=== PATIENT | male | born 1945 | race Caucasian/White ===

== ENCOUNTER 2019-02-17 15:03 | Emergency (ER) | payer OTHER ==
[~2019-02-17] VITALS: Ht 157.5 cm; Wt 71.2 kg
[2019-02-17 15:05] VITALS: BP 182/121
--- NOTE | 2019-02-17 15:27 | NUR ---
PATIENT PRESENTS TO ED WITH C/O FRAZIER X 1 DAY, VOMITTING X 1 DAY, AND COUGHING X 1 MONTH. DENIES N/D; SKIN IS PINK/WARM/DRY; AAOX4 WITH EVEN AND STEADY GAIT; PT DENIES ANY FEVER, CP, OR SOB AT THIS TIME; PATIENT STATES HEADACHE WITH PAIN OF 5/10 AT THIS TIME; PATIENT POSITIONED FOR COMFORT; HOB ELEVATED; BEDRAILS UP X2; BED DOWN. BP 194/105, ER AWARE. PATEINT STATES THAT HE HAS CHECKS BP DAILY AND TAKES BP MEDICATION. HX: HYPERTENSION, ARTHRITIS RX: CLONIDINE NKA Addendum: 02/17/19 at 1710 by MEDUD Patient discharged with BP 183/117, DR WEBSTER made aware. Per ok to discharge. Written and verbal after care instructions given and explained. Patient alert, oriented and verbalized understanding of instructions. Ambulatory with steady gait. All questions addressed prior to discharge. ID band removed. Patient advised to follow up with PMD. Rx of motrin and norco given. Patient educated on indication of medication including possible reaction and side effects. Opportunity to ask questions provided and answered.
[2019-02-17] MEDS ORDERED: cloNIDine 0.1 MG TAB PO ONE (15:40)
--- NOTE | 2019-02-17 15:56 | NUR ---
PT TAKEN FOR CT VIA WHEELCHAIR.
--- NOTE | 2019-02-17 16:11 | NUR ---
Patient returned from CT scan. RN re-evaluating patient at bedside.
--- NOTE | 2019-02-17 16:36 | NUR ---
NEW BP OF 179/106. ER MD AWARE AND AT BEDSIDE.
[2019-02-17] MEDS ORDERED: KETOROLAC 60 MG/2 ML VIAL IM ONE (16:40)
[2019-02-17 17:16] VITALS: BP 183/117
--- NOTE | 2019-02-17 17:16 | NUR ---
Patient discharged with BP 183/117. ER MD WEBSTER AWARE. Per ok to discharge. Written and verbal after care instructions given and explained. Patient alert, oriented and verbalized understanding of instructions. Ambulatory with steady gait. All questions addressed prior to discharge. ID band removed. Patient advised to follow up with PMD. Rx of motrin and norco given. Patient educated on indication of medication including possible reaction and side effects. Opportunity to ask questions provided and answered.
== END 2019-02-17 17:16 | disposition home or self-care (01) ==
LOC: MED 15:03
DX: I10 Essential (primary) hypertension (principal); R11.2 Nausea with vomiting, unspecified; M54.2 Cervicalgia
CPT/HCPCS: 70450; 81002; 96372; 99284; J1885

== ENCOUNTER 2019-03-19 11:55 | Emergency (ER) | payer OTHER ==
[~2019-03-19] VITALS: Ht 157.5 cm; Wt 74.4 kg
[2019-03-19 12:02] VITALS: BP 155/93
--- NOTE | 2019-03-19 12:04 | NUR ---
PT TAKEN TO BED 1.
--- NOTE | 2019-03-19 12:27 | NUR ---
PATIENT PRESENTS TO ED WITH C/O COUGH X 1 MONTH. PT STATES HE WENT TO URGENT CARE YESTERDAY AND THEY DIAGNOSED HIM WITH PNA. DENIES N/V/D; SKIN IS PINK/WARM/DRY; AAOX4 WITH EVEN AND STEADY GAIT; LUNG WITH COURSE SOUNDS TO LLL; HR EVEN AND REGULAR; PT DENIES ANY FEVER, CP, SOB, AT THIS TIME; PATIENT STATES PAIN OF 5/10 AT THIS TIME; VSS; PATIENT POSITIONED FOR COMFORT; HOB ELEVATED; BEDRAILS UP X2; BED DOWN. ER MD SAW PT.
[2019-03-19 13:18] LABS: BASOPHILS % (AUTO) 0.6 % (0.0-2.0); EOSINOPHILS # (AUTO) 0.1 K/uL (0-0.4); HEMATOCRIT 44.4 % (36-52); HEMOGLOBIN 14.6 g/dL (12.0-18.0); LYMPHOCYTES % (AUTO) 29.6 % (20.5-51.1); MEAN CORPUSCULAR HEMOGLOBIN 31 pg (27-31); MEAN CORPUSCULAR HGB CONC 33 g/dL (33-37); MONOCYTES # (AUTO) 0.3 K/uL (0.8-1.0); MONOCYTES % (AUTO) 8.3 % (1.7-9.3); NEUTROPHILS # (AUTO) 2.1 K/uL (1.8-7.7); NEUTROPHILS % (AUTO) 59.5 % (42.2-75.2); PLATELET COUNT (AUTO) 163 K/uL (140-450); RED BLOOD CELL COUNT(AUTO) 4.73 MIL/uL (4.20-6.10); RED CELL DISTRIBUTION WIDTH 14.7 % (11.6-13.7); WHITE BLOOD COUNT (AUTO) 3.5 K/uL (4.8-10.8)
[2019-03-19 13:46] LABS: ANION GAP 15.2 (8-16); CARBON DIOXIDE 25.5 mmol/L (21-32); CHLORIDE 106 mmol/L (98-107); CREATININE 1.1 mg/dL (0.7-1.3); GLUCOSE 103 mg/dL (74-106); POTASSIUM 3.7 mmol/L (3.5-5.1); SODIUM SERUM 143 mmol/L (136-145); UREA NITROGEN, BLOOD 12 mg/dL (7-18)
[2019-03-19 13:52] LABS: ALBUMIN 3.2 g/dL (3.4-5.0); ASPARTATE AMINOTRANSFERASE 22 U/L (15-37); TOTAL BILIRUBIN 0.7 mg/dL (0.0-1.0)
[2019-03-19] MEDS ORDERED: KETOROLAC 30 MG/ML VIAL IM ONE (14:20)
[2019-03-19 14:40] VITALS: BP 146/91
--- NOTE | 2019-03-19 14:42 | NUR ---
Patient discharged with v/s stable. Written and verbal after care instructions given and explained. Patient alert, oriented and verbalized understanding of instructions. Ambulatory with steady gait. All questions addressed prior to discharge. ID band removed. Patient advised to follow up with PMD. Rx of LASIX given. Patient educated on indication of medication including possible reaction and side effects. Opportunity to ask questions provided and answered.
== END 2019-03-19 14:42 | disposition home or self-care (01) ==
LOC: MED 11:55
DX: R06.02 Shortness of breath (principal); R05 Cough; R60.0 Localized edema; I10 Essential (primary) hypertension
CPT/HCPCS: 36415; 71045; 80053; 83880; 84484; 85025; 93005; 96372; 99284; J1885; Q0092

== ENCOUNTER 2021-01-30 11:45 | Emergency (ER) | payer MEDICARE, OTHER ==
[~2021-01-30] VITALS: Ht 142.2 cm; Wt 71.7 kg
[2021-01-30 11:56] VITALS: BP 157/98
--- NOTE | 2021-01-30 14:21 | NUR ---
NO NURSING INTERVENTIONS DONE, NO COMPLETE ASSESSMENT NEEDED.
--- NOTE | 2021-01-30 14:43 | NUR ---
Patient discharged with v/s stable. Written and verbal after care instructions given and explained. Patient verbalized understanding. Ambulatory with steady gait. All questions addressed prior to discharge. Advised to follow up with PMD.
[2021-01-30 14:44] VITALS: BP 144/91
== END 2021-01-30 14:43 | disposition home or self-care (01) ==
LOC: MED 11:45
DX: S20.211A Contusion of right front wall of thorax, initial encounter (principal); I10 Essential (primary) hypertension; W22.8XXA Striking against or struck by other objects, initial encounter; Y92.89 Other specified places as the place of occurrence of the external cause; Y93.55 Activity, bike riding; Y99.8 Other external cause status
CPT/HCPCS: 71101; 99283

== ENCOUNTER 2021-02-21 14:46 | Emergency (ER) | payer MEDICARE ==
[~2021-02-21] VITALS: Ht 147.3 cm; Wt 71.7 kg
[2021-02-21 14:48] VITALS: BP 115/71
--- NOTE | 2021-02-21 15:03 | NUR ---
75/M BIB SELF WITH C/O LEFT LEG/FOOT PAIN. PATIENT STATES HE HAS HX OF GOUT AND STATES "I AM HAVING A GOUT ATTACK." PATIENT STATES PAIN BEGAN 3 DAYS AGO AND HAS WORSENED TODAY, REPORTS TAKING INDOMETHACIN WITH NO RELIEF. PATIENT ABLE TO AMBULATE WITHOUT ASSISTANCE BUT REPORTS PAIN. DENIES CP, SOB, FEVER, CHILLS, N/V/D.
[2021-02-21] MEDS ORDERED: WATER STERILE 0 ML MC ONE (15:09)
[2021-02-21] MEDS ORDERED: methylPREDNISolone SS 125 MG/2 ML VIAL ONE (15:09)
[2021-02-21] MEDS: methylPREDNISolone SS 125 MG in WATER STERILE 2 ML IM ONE (15:16)
[2021-02-21] MEDS: KETOROLAC 60 MG/2 ML VIAL IM ONE (15:17)
[2021-02-21] MEDS ORDERED: ACET-8386 PO (15:25)
--- NOTE | 2021-02-21 15:57 | NUR ---
Patient discharged with v/s stable. Written and verbal after care instructions given and explained. Patient alert, oriented and verbalized understanding of instructions. Ambulatory with steady gait. All questions addressed prior to discharge. ID band removed. Patient advised to follow up with PMD. Rx of Hydrocodone/Acetaminophen given. Patient educated on indication of medication including possible reaction and side effects. Opportunity to ask questions provided and answered.
== END 2021-02-21 15:57 | disposition home or self-care (01) ==
LOC: MED 14:46
DX: M10.072 Idiopathic gout, left ankle and foot (principal); I10 Essential (primary) hypertension
CPT/HCPCS: 96372; 99284; J1885; J2930

== ENCOUNTER 2021-12-24 14:57 | Emergency (ER) | payer MEDICARE, OTHER ==
[~2021-12-24] VITALS: Ht 157.5 cm; Wt 73.5 kg
[~2021-12-24 14:57] MED LIST: ACET-8386 PO
[2021-12-24 15:11] VITALS: BP 167/101
--- NOTE | 2021-12-24 15:59 | NUR ---
PT TAKEN TO BED 3 VIA WHEELCHAIR.
--- NOTE | 2021-12-24 17:07 | NUR ---
Dr. Milner evaluating patient at bedside.
[2021-12-24] MEDS ORDERED: KETOROLAC 60 MG/2 ML VIAL IM ONE (17:35)
[2021-12-24 18:26] VITALS: BP 170/103
--- NOTE | 2021-12-24 18:46 | NUR ---
Patient discharged with v/s stable. Written and verbal after care instructions given. Patient verbalized understanding. Ambulatory with steady gait. All questions addressed prior to discharge. Advised to follow up with PMD.
== END 2021-12-24 18:46 | disposition home or self-care (01) ==
LOC: MED 14:57
DX: R51.9 Headache, unspecified (principal); M54.2 Cervicalgia; I10 Essential (primary) hypertension
CPT/HCPCS: 70450; 96372; 99284; J1885

== ENCOUNTER 2022-10-08 09:56 | Emergency (ER) | payer OTHER ==
[~2022-10-08] VITALS: Ht 157.5 cm; Wt 70.3 kg
[~2022-10-08 09:56] MED LIST changes: -ACET-8386 PO; +ACET-8905 PO
[2022-10-08 10:04] VITALS: BP 161/106
[2022-10-08] MEDS ORDERED: COLCHICINE 0.6 MG TAB PO ONE (11:50)
[2022-10-08] MEDS ORDERED: predniSONE 20 MG TAB PO ONE (11:50)
[2022-10-08] MEDS ORDERED: KETOROLAC 30 MG/ML VIAL IM ONE (11:50)
[2022-10-08] MEDS ORDERED: NAPR-54 PO (12:24)
[2022-10-08] MEDS ORDERED: COLC-30 PO (12:24)
[2022-10-08] MEDS ORDERED: PRED20TA5 PO (12:24)
--- NOTE | 2022-10-08 12:35 | NUR ---
Patient discharged with v/s stable. Written and verbal after care instructions given and explained. Patient alert, oriented and verbalized understanding of instructions. Ambulatory with to home. All questions addressed prior to discharge. ID band removed. Patient advised to follow up with PMD. Rx of COLCHICINE, NAPROSYN given. Patient educated on indication of medication including possible reaction and side effects. Opportunity to ask questions provided and answered.
== END 2022-10-08 12:34 | disposition home or self-care (01) ==
LOC: MED 09:56
DX: M10.9 Gout, unspecified (principal); I10 Essential (primary) hypertension; Z79.899 Other long term (current) drug therapy
CPT/HCPCS: 96372; 99283; J1885; J7512

== ENCOUNTER 2023-08-18 12:10 | Emergency (ER) | payer OTHER ==
[~2023-08-18] VITALS: Ht 157.5 cm; Wt 71.2 kg
[~2023-08-18 12:10] MED LIST changes: +COLC-30 PO; +NAPR-337 PO; +PRED20TA5 PO
[2023-08-18 12:52] VITALS: BP 116/82; PULSE 67; RESP 20; TEMP 98.1; O2SAT 96
[2023-08-18] MEDS ORDERED: IBUP-2230 PO (14:33)
[2023-08-18] MEDS ORDERED: AMOX-1230 PO (14:33)
== END 2023-08-18 14:45 | disposition home or self-care (01) ==
LOC: MED 12:10
DX: L03.114 Cellulitis of left upper limb (principal); I10 Essential (primary) hypertension; Z79.1 Long term (current) use of non-steroidal anti-inflammatories (NSAID); Z79.899 Other long term (current) drug therapy
CPT/HCPCS: 73130; 99283

== ENCOUNTER 2023-11-13 07:25 | Emergency (ER) | payer OTHER ==
[~2023-11-13] VITALS: Ht 157.5 cm; Wt 72.6 kg
[~2023-11-13 07:25] MED LIST changes: +AMOX-1230 PO; +IBUP-2230 PO
[2023-11-13 07:37] VITALS: BP 152/97; PULSE 88; RESP 16; TEMP 97.8; O2SAT 97
[2023-11-13 07:55] VITALS: BP 152/97; PULSE 88; RESP 16; TEMP 97.8; O2SAT 97
== END 2023-11-13 07:58 | disposition home or self-care (01) ==
LOC: MED 07:25
DX: M25.562 Pain in left knee (principal); I10 Essential (primary) hypertension; Z79.899 Other long term (current) drug therapy
CPT/HCPCS: 99282